=== PATIENT | male | born 1995 | race African-American/Black ===

== ENCOUNTER 2017-02-04 09:59 | Emergency (ER) | payer MEDICAID ==
[~2017-02-04] VITALS: Ht 175.3 cm; Wt 77.6 kg
[2017-02-04 12:21] VITALS: BP 101/68
== END 2017-02-04 12:21 | disposition home or self-care (01) ==
LOC: ED 09:59
DX: S00.03XA Contusion of scalp, initial encounter (principal); J45.909 Unspecified asthma, uncomplicated; I45.6 Pre-excitation syndrome; W01.0XXA Fall on same level from slipping, tripping and stumbling without subsequent striking against object, initial encounter; Y93.89 Activity, other specified; Y92.89 Other specified places as the place of occurrence of the external cause; Y99.8 Other external cause status